=== PATIENT | female | born 1945 | race Caucasian/White ===

== ENCOUNTER 2023-01-30 16:44 | Inpatient (IN) | payer MEDICARE ==
[~2023-01-30] VITALS: Ht 165.1 cm; Wt 100.7 kg
[2023-01-30 17:40] LABS: HEMATOCRIT 32.6 % (34.2-44.1); HEMOGLOBIN 10.7 g/dL (12.0-16.0); LYMPHOCYTES # (AUTO) 1.6 (1.0-3.2); LYMPHOCYTES % 36.4 % (18.0-39.1); MEAN CORPUSCULAR HEMOGLOBIN 35.4 pg (28-32); MEAN CORPUSCULAR HGB CONC 32.8 g/dL (31-35); MEAN CORPUSCULAR VOLUME 107.9 fL (81-99); MONOCYTES # (AUTO) 0.5 (0.2-0.8); MONOCYTES % 10.9 % (4.4-11.3); NEUTROPHILS # (AUTO) 2.3 (2.1-6.9); NEUTROPHILS % 52.3 % (38.7-80.0); PLATELET COUNT 165 x10e3/uL (140-360); RED BLOOD COUNT 3.02 x10e6/uL (3.6-5.1)
[2023-01-30 17:59] LABS: ALBUMIN 3.7 g/dL (3.5-5.0); ALBUMIN/GLOBULIN RATIO 1.3 (0.8-2.0); CALCIUM 9.1 mg/dL (8.4-10.2); CREATININE, SERUM 1.2 mg/dL (0.57-1.11)
[2023-01-30] MEDS ORDERED: LIDOCAINE 1% 10 ML MULTIDOSE VIAL IJ ONE (18:08)
[2023-01-30] MEDS ORDERED: Morphine 4mg INJECTION 4 MG/ML INJ IV PRN (18:45)
[2023-01-30] MEDS ORDERED: ASPIRIN 81 MG CHEW TAB PO ONE (18:45)
[2023-01-30] MEDS ORDERED: SODIUM CHLORIDE FLUSH 10 ML SYR INJ PRN (18:45)
[2023-01-30 20:50] VITALS: BP 198/92; PULSE 79; RESP 23; TEMP 98.2; O2SAT 97
[2023-01-30 21:02] VITALS: BP 211/90; PULSE 79; RESP 20; TEMP 98.2; O2SAT 100
[2023-01-30 21:13] VITALS: BP 190/92; PULSE 79; RESP 20; TEMP 98.2; O2SAT 100
[2023-01-30] MEDS ORDERED: LEVOTHYROXINE25 MCG PO (21:50)
[2023-01-30] MEDS ORDERED: BUMETANIDE1 MG PO (21:50)
[2023-01-30] MEDS ORDERED: DULOXETINE HCL60 MG PO (21:50)
[2023-01-30] MEDS ORDERED: FUROSEMIDE20 MG PO (21:50)
[2023-01-30] MEDS ORDERED: CLONIDINE HCL0.1 MG PO (21:50)
[2023-01-30] MEDS ORDERED: SMZ/TMP PO (21:50)
[2023-01-30] MEDS ORDERED: PRAMIPEXOLE0.125 MG PO (21:50)
[2023-01-30] MEDS ORDERED: CARVEDILOL12.5 MG PO (21:50)
[2023-01-30] MEDS ORDERED: OMEPRAZOLE40 MG PO (21:50)
[2023-01-30] MEDS ORDERED: ULTRAM 50MG50 MG PO (21:50)
[2023-01-30] MEDS ORDERED: PREDNISONE2.5 MG PO (21:50)
[2023-01-30] MEDS ORDERED: ALLOPURINOL100 MG PO (21:50)
[2023-01-30] MEDS ORDERED: GABAPENTIN400 MG PO (21:50)
[2023-01-30] MEDS ORDERED: CLONIDINE HCL 0.1 MG TAB PO PRN (22:00)
[2023-01-30] MEDS ORDERED: ACETAMINOPHEN 325 MG TAB PO PRN (22:00)
[2023-01-30] MEDS: FUROSEMIDE INJ 10 MG/ML 4 ML VIAL IV SCH (22:18)
[2023-01-30] MEDS: TRAMADOL HCL 50 MG TAB PO SCH (22:19)
[2023-01-30 23:15] VITALS: PULSE 70; RESP 18; O2SAT 98
[2023-01-30] MEDS: IPRATROPIUM BROMIDE 0.02% 2.5 ML NEB NEB SCH (23:15)
[2023-01-30] MEDS: ALBUTEROL SULF 0.083% NEB SOLN 3 ML NEB NEB SCH (23:15)
[2023-01-31] VITALS (13 sets, daily range): BP systolic 120–163; BP diastolic 60–88; PULSE 63–78; RESP 19–22; TEMP 97.7–98.5; O2SAT 95–100
[2023-01-31] MEDS: FUROSEMIDE INJ 10 MG/ML 4 ML VIAL IV SCH ×2 (05:42→17:02)
[2023-01-31 05:50] LABS: BASOPHILS % 0.2 % (0.0-1.0); HEMATOCRIT 33.7 % (34.2-44.1); HEMOGLOBIN 10.9 g/dL (12.0-16.0); LYMPHOCYTES # (AUTO) 2.3 (1.0-3.2); LYMPHOCYTES % 44.5 % (18.0-39.1); MEAN CORPUSCULAR HGB CONC 32.3 g/dL (31-35); MEAN CORPUSCULAR VOLUME 108.4 fL (81-99); MONOCYTES # (AUTO) 0.8 (0.2-0.8); MONOCYTES % 14.6 % (4.4-11.3); NEUTROPHILS # (AUTO) 2.1 (2.1-6.9); NEUTROPHILS % 40.5 % (38.7-80.0); PLATELET COUNT 158 x10e3/uL (140-360); RED BLOOD COUNT 3.11 x10e6/uL (3.6-5.1); RED CELL DISTRIBUTION WIDTH 14.8 % (11.7-14.4)
[2023-01-31 06:17] LABS: ALBUMIN 3.6 g/dL (3.5-5.0); ALBUMIN/GLOBULIN RATIO 1.2 (0.8-2.0); ANION GAP 15.4 mmol/L (8-16); CALCIUM 9.2 mg/dL (8.4-10.2); CREATININE, SERUM 1.18 mg/dL (0.57-1.11); POTASSIUM 4.4 mmol/L (3.5-5.1)
[2023-01-31] MEDS: IPRATROPIUM BROMIDE 0.02% 2.5 ML NEB NEB SCH ×4 (06:20→22:00)
[2023-01-31] MEDS: ALBUTEROL SULF 0.083% NEB SOLN 3 ML NEB NEB SCH ×5 (06:20→22:00)
[2023-01-31] MEDS ORDERED: PANTOPRAZOLE SOD 40 MG TABEC PO SCH (09:00)
[2023-01-31] MEDS ORDERED: LEVOTHYROXINE SODIUM 25 MCG TABLET PO SCH (09:00)
[2023-01-31] MEDS: CARVEDILOL 12.5 MG TAB PO SCH ×2 (09:20→17:01)
[2023-01-31] MEDS: PRAMIPEXOLE DIHYDROCHLORIDE 0.25 MG TAB PO SCH ×3 (09:20→20:19)
[2023-01-31] MEDS: PREDNISONE 5 MG TAB PO SCH (09:20)
[2023-01-31] MEDS: ALLOPURINOL 100 MG TAB PO SCH (09:20)
[2023-01-31] MEDS ORDERED: METHYLPREDNISOLONE SOD SUCC 40 MG/ML VIAL 1ML IV ONE (12:00)
[2023-01-31] MEDS ORDERED: SODIUM CHLORIDE 0.9% 250ML 250 ML ONE (12:54)
[2023-01-31] MEDS: Doxycycline IV 100 MG in SODIUM CHLORIDE 0.9% 100 ML IV SCH (12:58)
[2023-01-31] MEDS ORDERED: DEXAMETHASONE SOD PHOS 10 MG/1 ML VIAL IV ONE (13:00)
[2023-01-31] MEDS: ONDANSETRON HCL INJ 2MG/ML 2ML 2 MG/ML VIAL IV PRN ×2 (13:18→18:10)
[2023-01-31] MEDS ORDERED: ENOXAPARIN SOD INJ 40 MG/0.4 ML SYR SC SCH (17:00)
[2023-01-31] MEDS: LACTOBACILLUS ACIDOPHILUS CAPSULE PO SCH (20:19)
[2023-01-31] MEDS ORDERED: DULOXETINE HCL 30 MG DELAYED RELEASE PO SCH (21:00)
[2023-01-31] MEDS: DICYCLOMINE HCL 10 MG CAP PO PRN (21:37)
[2023-01-31] MEDS: TRAMADOL HCL 50 MG TAB PO SCH (21:37)
[2023-02-01] VITALS (8 sets, daily range): BP systolic 122–182; BP diastolic 55–82; PULSE 67–89; RESP 18–21; TEMP 97–98.2; O2SAT 95–98
[2023-02-01] MEDS: Doxycycline IV 100 MG in SODIUM CHLORIDE 0.9% 100 ML IV SCH ×2 (01:03→11:37)
[2023-02-01] MEDS: FUROSEMIDE INJ 10 MG/ML 4 ML VIAL IV SCH (05:35)
[2023-02-01] MEDS ORDERED: PANTOPRAZOLE SOD 40 MG TABEC PO SCH (06:00)
[2023-02-01] MEDS ORDERED: LEVOTHYROXINE SODIUM 25 MCG TABLET PO SCH (06:00)
[2023-02-01 06:37] LABS: ALBUMIN 3.6 g/dL (3.5-5.0); ALBUMIN/GLOBULIN RATIO 1.2 (0.8-2.0); ANION GAP 16.5 mmol/L (8-16); CALCIUM 9.1 mg/dL (8.4-10.2); CREATININE, SERUM 1.24 mg/dL (0.57-1.11); POTASSIUM 4.5 mmol/L (3.5-5.1)
[2023-02-01 06:52] LABS: CHOL/HDL RATIO 3.9 (3.0-3.6)
[2023-02-01] MEDS: IPRATROPIUM BROMIDE 0.02% 2.5 ML NEB NEB SCH (07:17)
[2023-02-01] MEDS: ALBUTEROL SULF 0.083% NEB SOLN 3 ML NEB NEB SCH ×2 (07:17→11:13)
[2023-02-01] MEDS: LACTOBACILLUS ACIDOPHILUS CAPSULE PO SCH (09:00)
[2023-02-01] MEDS: PREDNISONE 5 MG TAB PO SCH (09:01)
[2023-02-01] MEDS: ALLOPURINOL 100 MG TAB PO SCH (09:01)
[2023-02-01] MEDS: DICYCLOMINE HCL 10 MG CAP PO PRN (09:01)
[2023-02-01] MEDS: CARVEDILOL 12.5 MG TAB PO SCH (09:02)
[2023-02-01] MEDS: PRAMIPEXOLE DIHYDROCHLORIDE 0.25 MG TAB PO SCH (09:02)
[2023-02-01] MEDS ORDERED: DOXYCYCLINE HY100 MG PO (11:45)
== END 2023-02-01 13:07 | disposition home or self-care (01) | DRG 292 ==
LOC: ER 16:51 → ERHOLD 18:41 → MED/SURG3 20:36 → OBSVTOIN 01-31 12:49
PROVIDERS: ADMIT Internal Medicine; ATTEND Internal Medicine
DX: I11.0 Hypertensive heart disease with heart failure (principal); C34.90 Malignant neoplasm of unspecified part of unspecified bronchus or lung; E87.1 Hypo-osmolality and hyponatremia; J90 Pleural effusion, not elsewhere classified; N17.9 Acute kidney failure, unspecified; I48.91 Unspecified atrial fibrillation; I73.9 Peripheral vascular disease, unspecified; E78.5 Hyperlipidemia, unspecified; I50.9 Heart failure, unspecified; I25.10 Atherosclerotic heart disease of native coronary artery without angina pectoris; D64.9 Anemia, unspecified; E78.00 Pure hypercholesterolemia, unspecified; Z20.822 Contact with and (suspected) exposure to COVID-19; E03.9 Hypothyroidism, unspecified; Z95.810 Presence of automatic (implantable) cardiac defibrillator; Z87.891 Personal history of nicotine dependence; Z79.890 Hormone replacement therapy; Z95.5 Presence of coronary angioplasty implant and graft; Z95.1 Presence of aortocoronary bypass graft; Z79.60 Long term (current) use of unspecified immunomodulators and immunosuppressants; Z82.49 Family history of ischemic heart disease and other diseases of the circulatory system
CPT/HCPCS: 0223U; 36415; 71045; 80053; 80061; 82550; 83880; 84484; 85025; 93005; 93306; 94640; 94799; 99284; G0378; J1100; J1650; J1940; J2405; J7050; J7512